=== PATIENT | male | born 1950 | race Caucasian/White ===

== ENCOUNTER → 2016-06-07 | Outpatient (REF) | payer OTHER | END | disposition home or self-care (01) | LOC: M SMT 17:00 | PROVIDERS: ATTEND Urology | DX: R31.0 Gross hematuria (principal) ==

== ENCOUNTER → 2016-07-27 | Day surgery (SDC) | payer OTHER, MEDICARE ==
[~2016-07-27] MED LIST: APIDINJ2 SC; ASPI325T28 PO; ATOR40TA PO; CIPR500T3 PO; CONRAY-60 60% 50ML VIAL (Q9961) As Ordered ONE; DRIS50002 PO; DULO30CA PO; FLOM5CAP PO; INSULADS INJ; KETOROLAC 60 MG/2 ML VIAL (J1885) As Ordered ONE; LANO1TAB23 PO; LEVA250T PO; LIDOCAINE 2% INJ 100 MG/5 ML SDV (FOR ANES.) As Ordered ONE; LOVE0.4I2 SC; LYRI200C PO; MELO7.5T6 PO; METO50TA2 PO; MIDAZOLAM INJ 2 MG/2 ML VIAL (J2250) As Ordered ONE; NALOXONE INJ 0.4 MG/1 ML VIAL (J2310) ONE; ONDANSETRON 4MG/2ML VIAL (J2405) As Ordered ONE; ONDANSETRON 4MG/2ML VIAL (J2405) IV PRN; PANT40TA2 PO; PERC10TA17 PO; PERCOCET PO; PROPOFOL 200 MG/20 ML VIAL As Ordered ONE; PROS5TAB PO; SULF1TAB72 PO; XARE20TA PO; ceFAZolin SOD 1 GM in D5W MINI-BAG PLUS 50 ML IV ONE; ePHEDrine SULFATE 25 MG/5 ML(5MG/ML) SYRINGE As Ordered ONE; ePHEDrine SULFATE 25 MG/5 ML(5MG/ML) SYRINGE IV SCH; fentaNYL 100 MCG/2 ML INJECTION (J3010) As Ordered ONE
[2016-07-27] MEDS: LR 1,000 ML IV SCH (12:30)
[2016-07-27] MEDS: NALOXONE INJ 0.4 MG/1 ML VIAL (J2310) IV SCH ×2 (14:45→14:50)
--- NOTE | 2016-07-27 16:07 | REP ---
Retrograde pyelogram: Five views: History: Left-sided hydronephrosis. 1 minute 28 seconds of fluoroscopy time is reported. Findings: A sequence of five fluoroscopically obtained intraprocedural spot radiographs of the abdomen document cystoscopy instrument, left ureteral cannulation, contrast injection, guidewire manipulation, and double pigtail left ureteral stent placement. No laterality markers are visible. Signed by Temo Tarango MD 07/27/2016 05:45 P
[2016-07-27 17:04] VITALS: BP 118/61
--- NOTE | 2016-07-28 13:40 | RO ---
DATE OF PROCEDURE: 07/27/2016 PREOPERATIVE DIAGNOSIS: Left ureteral stone 1 cm in diameter. POSTOPERATIVE DIAGNOSIS: Left ureteral stone 1 cm in diameter. SURGERY PERFORMED: Cystoscopy, plus left retrograde pyelogram, plus left laser stone lithotripsy, plus left basket extraction of stone, plus left JJ-stent placement #6 Austrian [place] Cook. SURGEON: Dr. Magdaleno Solano BOARD OF EDUCATION SECRETARY: Michael Anderson, PGY3 ANESTHESIA: General. COMPLICATIONS: None. ESTIMATED BLOOD LOSS: N/A. HISTORY OF PRESENT ILLNESS: 66-year-old male patient that actively has a 1 cm left mid ureteral stone and left hydronephrosis and left flank pain. For this reason, he has consented for cystoscopy, plus possible left retrograde pyelogrma, plus possible left laser stone lithotripsy with Holmium laser, plus possible basket extraction of stone, possible left JJ-stent placement #6 Austrian [place] Cook. PROCEDURE DESCRIPTION: In a patient under general anesthesia in supine modified low lithotomy position after prepping and draping the area of concern, which included the entire genitalia and abdomen, we started by introducing a cystoscope, #21 Austrian in diameter with 30 degrees lens under video guidance. The fossa navicularis, penile urethra, bulbar urethra, membranous urethra and prostatic urethra were totally normal. The bladder had no tumors, no stones, no foreign objects. Both ureteral orifices were seen excreting clear urine. We then proceeded to pass a 5 Austrian Pollack catheter into the left ureteral orifice and did a retrograde pyelogram. We could actively evidence a stone in the mid ureter. There was no kidney stones. At that moment in time, we passed a Sensor guidewire through the Pollack catheter up to the kidney and removed the Pollack catheter out. We removed the cystoscope out. We passed a double lumen catheter and passed a guidewire up to the kidney. We then removed the double lumen catheter and passed a ureteral access sheath up to the mid ureter. We took out the ureteral obturator of the access sheath and the internal guidewire out and could actively save the safety guidewire parallel to the ureteral access sheath. Through the ureteral access sheath we introduced a flexible ureteroscope. We did a formal ureteroscopy up to where we met a stone in the mid ureter. At that moment in time we did a Holmium laser lithotripsy of the stone with the Holmium laser 200 micron probe laser at power 0.6 at a rate of 6. Once the stone was pulverized into multiple fragments, we grabbed the 1.9 Austrian 0 tip basket and grabbed the stones one by one out of the body of the patient. We then proceeded to actively advance the ureteroscope out to the kidney and did a formal nephroscopy of upper pole, mid pole and lower pole. There were no stones left. We then proceeded to do a retrograde ureteroscopy by removing the ureteroscope and the ureteral access sheath at the same time. There were no stones left in the ureter. We then proceeded to actively introduce a cystoscope once again following the guidewire and introduced a left JJ-stent following the safety guidewire up to the kidney. Once it was in good position, we took the safety guidewire out and the curl in the kidney and the curl in the bladder was seen and x-ray was taken. We then emptied the bladder and took the cystoscope out. PLAN: The patient will go home today with antibiotics and pain medication. Followup in one week for removal of the left JJ-stent. There were no complications during the surgery. The stones were sent for biochemical analysis.
== END ==
LOC: M SDC 11:42
PROVIDERS: ATTEND Urology
DX: N20.1 Calculus of ureter (principal); I10 Essential (primary) hypertension; J44.9 Chronic obstructive pulmonary disease, unspecified; I25.10 Atherosclerotic heart disease of native coronary artery without angina pectoris; I25.2 Old myocardial infarction; I44.0 Atrioventricular block, first degree; E11.21 Type 2 diabetes mellitus with diabetic nephropathy; K44.9 Diaphragmatic hernia without obstruction or gangrene; M54.2 Cervicalgia; M10.9 Gout, unspecified; E78.5 Hyperlipidemia, unspecified; F41.9 Anxiety disorder, unspecified; F32.9 Major depressive disorder, single episode, unspecified; N40.1 Benign prostatic hyperplasia with lower urinary tract symptoms; R32 Unspecified urinary incontinence; G89.29 Other chronic pain; R06.83 Snoring; Z86.73 Personal history of transient ischemic attack (TIA), and cerebral infarction without residual deficits; Z87.442 Personal history of urinary calculi; Z79.899 Other long term (current) drug therapy; Z79.4 Long term (current) use of insulin; Z79.82 Long term (current) use of aspirin; Z79.01 Long term (current) use of anticoagulants; Z87.891 Personal history of nicotine dependence
CPT/HCPCS: 36415; 52352; 52356; 74420; 82360; 84132; 88300; C2617; J0690; J1885; J2250; J2310; J2405; J3010; Q9961

== ENCOUNTER 2016-08-04 13:52 | Inpatient (IN) | payer MEDICARE, OTHER ==
[~2016-08-04] VITALS: Ht 188 cm; Wt 122.4 kg
[~2016-08-04 13:52] MED LIST changes: -CONRAY-60 60% 50ML VIAL (Q9961) As Ordered ONE; -KETOROLAC 60 MG/2 ML VIAL (J1885) As Ordered ONE; -LIDOCAINE 2% INJ 100 MG/5 ML SDV (FOR ANES.) As Ordered ONE; -MIDAZOLAM INJ 2 MG/2 ML VIAL (J2250) As Ordered ONE; -NALOXONE INJ 0.4 MG/1 ML VIAL (J2310) ONE; -ONDANSETRON 4MG/2ML VIAL (J2405) As Ordered ONE; -ONDANSETRON 4MG/2ML VIAL (J2405) IV PRN; -PROPOFOL 200 MG/20 ML VIAL As Ordered ONE; -ceFAZolin SOD 1 GM in D5W MINI-BAG PLUS 50 ML IV ONE; -ePHEDrine SULFATE 25 MG/5 ML(5MG/ML) SYRINGE As Ordered ONE; -ePHEDrine SULFATE 25 MG/5 ML(5MG/ML) SYRINGE IV SCH; -fentaNYL 100 MCG/2 ML INJECTION (J3010) As Ordered ONE
[2016-08-04] MEDS ORDERED: NS 500 ML IV ONE (16:00)
[2016-08-04 16:25] LABS: MICROSCOPIC INDICATED? MAN YES (NO)
[2016-08-04 16:31] LABS: BACTERIA, URINE SMALL AMOUNT; HYALINE CAST, URINE NONE SEEN /lpf (0-1); RBC, URINE TNTC /hpf (0-3); SQUAMOUS EPITHELIAL CELL URINE SMALL AMOUNT /hpf (SMALL AMT); WBC, URINE 0-1 /hpf (0-3)
[2016-08-04 16:32] LABS: MICROSCOPIC EXAM PERFORMED
--- NOTE | 2016-08-04 17:11 | REP ---
BILATERAL RENAL ULTRASOUND: 08/04/2016. COMPARISON: Retrograde pyelogram 07/27/2016, CT abdomen and pelvis 05/02/2016. CLINICAL HISTORY: Left flank pain, status post ureteral stent placement 07/27/2016. FINDINGS: Sonographic evaluation of the kidneys is this patient show the right kidney 15 x 6 x 6 cm. Its cortical thickness and echogenicity appear normal. There are multiple cysts with a 2 x 2.3 x 2 cm cyst peripherally in the upper pole, a 2.6 x 2.5 cm cyst laterally in the interpolar region and 1 x 1 mm cyst below it at the interpolar lower pole junction. There is mild hydronephrosis, but no hydroureter. No renal stone or solid mass identified. The left kidney is 13 x 5.4 x 7 cm. It has normal cortical thickness and echogenicity. In the upper pole, there is a 3 x 2.7 x 2.5 cm cyst. Peripherally in the interpolar region is a 1.6 x 1.3 x 1.2 cm cyst and in the lower pole is the dominant cyst 5.2 x 2.8 x 3.3 cm. There is mild hydronephrosis, but no hydroureter on this side. Pelviectasis and caliectasis on both sides. Parapelvic and cortical cysts seen. There is a internal ureteral stent evident. Its distal coil is in the left side of the bladder. Bladder is distended. There is echogenic debris evident. No ureteral jets were seen on either side. Prostate appears somewhat enlarged measuring 4.6 x 4.2 x 4.1 cm. Impression: 1. There is a left double pigtail ureteral stent coiled proximally in the renal collecting system and distally in the bladder. No definite solid mass or stone identified at this time by ultrasound. 2. Bilateral renal cysts were noted. There is mild hydronephrosis bilaterally without hydroureter on the right or left side. 3. Pigtail stent in the bladder on the left side. Ureteral jets are not seen. Bladder adequately distended and there is echogenic debris layering posteriorly. Prostate enlarged indenting the bladder base. Signed by Jonah Bahena MD 08/05/2016 10:45 A
[2016-08-04 17:33] LABS: BASO % 0.5 % (0.0-1.0); EOS # 0.2 K/mm3 (0.0-0.50); EOS % 2.6 % (0.0-3.0); LARGE UNSTAINED CELL # 0.1 K/mm3 (0.0-0.4); LARGE UNSTAINED CELL % 1.9 % (0.0-4.0); LYMPH # 1.6 K/mm3 (1.5-4.5); LYMPH % 28.4 % (24.0-44.0); MEAN CORPUSCULAR HEMOGLOBIN 28.5 pg (27.0-33.0); MEAN CORPUSCULAR HGB CONC 31.9 g/dl (32.0-36.5); MEAN CORPUSCULAR VOLUME 89.4 fl (80.0-96.0); MONO # 0.3 K/mm3 (0.0-0.8); MONO % 5.5 % (0.0-5.0); NEUTROPHILS # 3.5 K/mm3 (1.8-7.7); PLATELET COUNT, AUTOMATED 142 k/mm3 (150-450); RED CELL DISTRIBUTION WIDTH 13.7 % (11.5-14.5); WHITE BLOOD COUNT 5.7 K/mm3 (4.0-10.0)
[2016-08-04 17:48] LABS: INR 1.78
[2016-08-04] MEDS: CIPROFLOXACIN 500 MG TAB PO SCH (18:00)
--- NOTE | 2016-08-04 18:36 | REP ---
ABDOMEN KUB: REASON: Assess stent. On the left there is a double-J stent catheter in the proximal portion of which appears to be in the region of the left renal pelvis in the distal portion of which appears to be in the region of the urinary bladder. Examination is otherwise unremarkable. Chronic calcifications are seen in the pelvis and there is no evidence of intestinal obstruction of free air. Chronic changes are seen involving the imaged osseous structures. Signed by Richard Martinez DO 08/04/2016 07:17 P
[2016-08-04 19:12] LABS: ANION GAP 7 MEQ/L (8-16); BLOOD UREA NITROGEN 27 MG/DL (7-18); CALCIUM LEVEL 9.6 MG/DL (8.8-10.2); CARBON DIOXIDE LEVEL 29 MEQ/L (21-32); CHLORIDE LEVEL 106 MEQ/L (98-107); CREATININE FOR GFR 1.59 MG/DL (0.70-1.30); GLOMERULAR FILTRATION RATE 46.3 (>49); GLUCOSE, FASTING 265 MG/DL (80-110); SODIUM LEVEL 142 MEQ/L (136-145)
[2016-08-04 19:13] LABS: POTASSIUM SERUM 5.6 MEQ/L (3.5-5.1)
[2016-08-04] MEDS ORDERED: HumaLOG INSULIN (NovoLOG) PER UNIT SC SCH (21:00)
[2016-08-04] MEDS ORDERED: LEVEMIR (INSULIN DETEMIR) 1 UNITS/0.01ML SC SCH (21:00)
[2016-08-04] MEDS ORDERED: ATORVASTATIN 20 MG TAB PO SCH (21:00)
[2016-08-04] MEDS ORDERED: DIGOXIN 0.25 MG TAB PO SCH (21:00)
[2016-08-04] MEDS ORDERED: NS 1,000 ML IV SCH (21:03)
[2016-08-04] MEDS ORDERED: DEXTROSE 50% 50 ML SYRINGE IV PRN (21:15)
[2016-08-04] MEDS ORDERED: GLUCOSE 4 GM CHEW TABLET PO PRN (21:15)
[2016-08-04] MEDS ORDERED: ACETAMINOPHEN TAB 650MG DOSE (2X325MG) PO PRN (21:15)
[2016-08-04] MEDS ORDERED: GLUCAGON FOR INJ 1 MG VIAL (J1610) SC PRN (21:15)
[2016-08-04] MEDS ORDERED: CIPR500T3 PO (21:20)
[2016-08-04] MEDS ORDERED: DIGO0.25 PO (21:20)
[2016-08-04] MEDS ORDERED: XARE20TA PO (21:25)
[2016-08-04] MEDS ORDERED: CYCL10TA PO (21:25)
[2016-08-04] MEDS ORDERED: ASPI325T PO (21:25)
[2016-08-04] MEDS ORDERED: HYDR-3719 PO (21:25)
[2016-08-04] MEDS ORDERED: DULO1CAP PO (21:25)
[2016-08-04 21:37] LABS: FERRITIN 14 NG/ML (26-388); PERCENT SATURATION 11.3 % (19.7-37.4); TOTAL IRON BINDING CAPACITY 424 UG/DL (250-450)
[2016-08-04 21:47] LABS: RETICULOCYTE ABSOLUTE ADVIA212 162 x10(9)/L (17-77)
--- NOTE | 2016-08-04 22:14 | HPEPDOC ---
General Date of Admission Aug 04, 2016 at 21:18 Chief Complaint The patient is a 66-year-old male Presented to the hospital for blood in his urine. History of Present Illness Patient is a 66 year old male with a PMHx of A. fib (on Xarelto), IDDM2, Vitamin D deficiency, DLP, BPH, CHF, Fibromyalgia, Neuropathy, CVA (2011) , PTSD, and Recent Hx of nephrolithiasis who presented to the ED with complaints of blood in his urine. Patient notes that on 07/27 patient had a lithotripsy and left basket extraction plus left JJ stent placement with Dr. Solano for a kidney stone. Patient was advised to stop taking Xarelto and continue with Lovenox alone, however did has been taking Xarelto. Patient presented to the ER today with complaints of dizziness and blood in his urine since the procedure on 07/27. Today patient has noted a large clot that he passed in his urine. He denies any LOC or fall. Denies shortness of breath or palpitations. He does note some mild chest pain, at his upper chest, 4/10, pain, no radiation , no alleviating or aggravating factors. No associated SOB, nausea, vomiting or diaphoresis. He denies any abdominal pain, constipation, diarrhea or urinary discomfort. He does note urinary frequency. Home Medications Scheduled (Apidra Solostar) 100 Unit/Ml Inj 1 DOSE SC AC (Reported) Aspirin (Aspirin) 325 Mg Tab 325 MG PO DAILY (Reported) Atorvastatin Calcium (Atorvastatin Calcium) 40 Mg Tab 40 MG PO QHS (Reported) Ciprofloxacin HCl (Ciprofloxacin HCl) 500 Mg Tab 500 MG PO BID (Reported) Digoxin (Digoxin) 0.25 Mg Tab 0.25 MG PO QHS (Reported) Duloxetine Hcl (Duloxetine HCl) 20 Mg Cap 40 MG PO DAILY (Reported) Finasteride (Proscar) 5 Mg Tab 5 MG PO DAILY (Reported) Insulin Glargine (Lantus) 100 Unit/Ml Inj 40 UNIT INJ BID (Reported) Meloxicam (Meloxicam) 7.5 Mg Tab 7.5 MG PO DAILY (Reported) Metoprolol Tartrate (Metoprolol Tartrate) 50 Mg Tab 50 MG PO BID (Reported) Pantoprazole Sodium (Pantoprazole Sodium) 40 Mg Tab 40 MG PO DAILY (Reported) Pregabalin (Lyrica) 200 Mg Cap 200 MG PO BID (Reported) Rivaroxaban (Xarelto) 20 Mg Tab 20 MG PO DAILY (Reported) Tamsulosin Hydrochloride (Flomax) 0.4 Mg Cap 1 CAP PO DAILY (Reported) once daily 1/2 hour following the same meal each day Vitamin D (Drisdol) 50,000 Unit Cap 50,000 UNIT PO QWEEK (Reported) MONDAY MORNING Scheduled PRN Acetaminophen/Hydrocodone (Hydrocodone/Acetaminophen 10-325 mg) 1 Tab Tab 1 TAB PO Q4H PRN PRN PAIN (Reported) Cyclobenzaprine HCl (Cyclobenzaprine HCl) 10 Mg Tab 10 MG PO TID PRN PRN MUSCLE SPASMS (Reported) Allergies Coded Allergies: No Known Drug Allergy (Verified Allergy, Unknown, 07/01/16) Past Medical History Medical History A. fib (on Xarelto), IDDM2, Vitamin D deficiency, DLP, BPH, CHF, Fibromyalgia, Neuropathy, CVA (2011), PTSD, and Recent Hx of nephrolithiasis Surgical History 3 kidney stones removed Disk repair at neck Blood clot in R arm resection Cataract surgery bilaterally Carpal tunnel repair bilaterally Family History - Non-contributory Social History - Denies the use of alcohol or illicit drugs; Quit smoking 30 years ago ; smoker of 20 years at 2 [facility] - Denies recent travel or sick contacts - Lives with - Occupation; Retired [employer] Review of Symptoms Other systems Constitutional: Denies weight loss, change in appetite, or recent trauma Eyes: No visual changes or eye pain Ears, Nose, Throat: Denies nose bleeds, or difficulty swallowing Cardiovascular: Positive chest pain, No sweating, or orthopnea Respiratory: Denies cough, wheezing, or shortness of breath GI: Lionel nausea, vomiting, abdominal pain, diarrhea or constipation : Denies pain with urination, Positive frequency and blood Musculoskeletal: Denies joint pain or swelling Neuro / Psych: Denies muscle weakness or sensory loss Skin: No skin rashes noted All other review of systems negative; otherwise stated in history of present illness Screening: - Colonoscopy done a few years ago reported normal Vital Signs - Vitals: BP 161/79, HR 78, RR 18, Sat 95%RA, Temp 97.2F - General: Lying in bed, No acute distress, Speaking in full sentences, AAOx3 - HEENT: NC, AT, PERRLA, EOMI - CVS: RRR, +S1S2, + Systolic murmur - Lungs: Fair air entry bilaterally, Clear to auscultation, No wheezing / rales / rhonchi - Abdomen: Soft, Non-distended, Non-tender, + Bowel sounds x 4, Bruise around R LQ 2/2 Lovenox injection, + L CVA tenderness - Extremities: + PPx4, No lower extremity edema, No calf tenderness - Neuro: No focal motor or sensory deficit - Skin: No visible rashes Laboratory Data Labs 24H Laboratory Tests 2 08/04/16 16:03: Bedside Urine Appearance (LAB) TURBIDH, Bedside Urine Bilirubin (LAB) NEGATIVE, Bedside Urine Blood POSITIVEH, Bedside Urine Color (LAB) REDH, Bedside Urine Glucose (UA) 4+(1000 MG/DL)H, Bedside Urine Ketones (LAB) NEGATIVE, Bedside Urine Leukocyte Esterase (L NEGATIVE, Bedside Urine Nitrite (LAB) NEGATIVE, Bedside Urine Protein (LAB) 3+H, Bedside Urine Specific Raymond (LAB 1.020, Bedside Urine Urobilinogen (LAB) NORMAL, Bedside Urine pH (LAB) 6.0, Urine WBC 0 -1, Urine RBC TNTCH, Urine Squamous Epithelial Cells SMALL AMOUNT, Urine Bacteria SMALL AMOUNTH, Urine Hyaline Casts NONE SEEN, Urine Trichomonas , Urine Sediment Examination PERFORMED 08/04/16 17:11: Activated Partial Thromboplast Time 39.4H, Prothromb Time International Ratio 1.78, Prothrombin Time 20.8H 08/04/16 17:12: Absolute Reticulocyte Count 162H, White Blood Count 5.7, Red Blood Count 4.66, Hemoglobin 13.3L, Hematocrit 41.6L, Mean Corpuscular Volume 89.4, Mean Corpuscular Hemoglobin 28.5, Mean Corpuscular Hemoglobin Concent 31.9L, Red Cell Distribution Width 13.7, Platelet Count 142L, Neutrophils (%) (Auto) 61.0, Lymphocytes (%) (Auto) 28.4, Monocytes (%) (Auto) 5.5H, Eosinophils (%) (Auto) 2.6, Basophils (%) (Auto) 0.5, Neutrophils # (Auto) 3.5, Lymphocytes # (Auto) 1.6, Monocytes # (Auto) 0.3, Eosinophils # (Auto) 0.2, Basophils # (Auto) 0.0, Large Unclassified Cells # 0.1, Large Unclassified Cells % 1.9, Percent Reticulocyte Count 3.50H, Reticulocyte Hgb Content (CHr) 31.0 08/04/16 18:52: Anion Gap 7L, Blood Urea Nitrogen 27H, Creatinine 1.59H, Sodium Level 142, Potassium Level 5.6H, Chloride Level 106, Carbon Dioxide Level 29, Calcium Level 9.6, Total Creatine Kinase 204, Creatine Kinase MB 4.2H, Creatine Kinase MB Relative Index 2.05, Ferritin 14L, Glomerular Filtration Rate 46.3L, Iron Level 48L, Total Iron Binding Capacity 424, Transferrin % Saturation 11.3L, Troponin I < 0.02 08/04/16 21:32: Bedside Glucose (Misc Panel) 286H CBC/BMP Laboratory Tests 08/04/16 17:12 Red Blood Count 4.66, Mean Corpuscular Volume 89.4, Mean Corpuscular Hemoglobin 28.5, Mean Corpuscular Hemoglobin Concent 31.9 L, Red Cell Distribution Width 13.7, Neutrophils (%) (Auto) 61.0, Lymphocytes (%) (Auto) 28.4, Monocytes (%) ( Auto) 5.5 H, Eosinophils (%) (Auto) 2.6, Basophils (%) (Auto) 0.5, Neutrophils # (Auto) 3.5, Lymphocytes # (Auto) 1.6, Monocytes # (Auto) 0.3, Eosinophils # ( Auto) 0.2, Basophils # (Auto) 0.0 08/04/16 18:52 Calcium Level 9.6, Total Creatine Kinase 204 Microbiology Microbiology 08/04/16 Urine Culture, Received Pending Plan / VTE VTE Prophylaxis Ordered?: Yes Plan / Urinary Catheter Reason for insertion/continuin: Other-document below Plan Plan Hematuria likely 2/2 post-procedure, nephrolithiasis, possible mass - Patient has had a lithotripsy, basket stone removal and stent placement on 07/27 - Presented with hematuria since that point, worsening to clots at this time and dizziness - Physical reveals left flank pain - Hg 13.3, no recent baseline available for comparison - Hemodynamically stable - Will trend H&H q6h - Type and screen and consented for transfusion - Will hold Xarelto and Lovenox for now - Will continue with Ciprofloxacin (post urologic antibiotic prescribed by Urology) - Discussed case with Dr. Solano (on consult); will hold off on bladder irrigation and packer insertion at this point as patient is still able to pass urine, and to hold anticoagulation for now Chest pain possibly 2/2 cardiac etiology, possibly 2/2 GERD - reports chest pain started today, is atypical in nature - Will get stat EKG and trend troponin - Will keep on PCU for monitoring Thrombocytopenia possibly 2/2 consumptive etiology 2/2 hematuria - will monitor for now CKD3 - Cr appears to be at baseline - Will monitor for now A. fib (on Xarelto) - c/w digoxin and metoprolol - will hold anticoagulation for now IDDM2 - c/w insulin sliding scale and long acting insulin Vitamin D deficiency - c/w vitamin D supplementation DLP - c/w statin BPH - c/w tamsulosin CHF - Systolic murmur - no ECHO available Fibromyalgia and Neuropathy - c/w Lyrica CVA (2011) - will hold ASA - c/w statin PTSD - c/w duloxetine GERD - c/w protonix DVT prophylaxis - Will start SCDs RODRIGO FREDERICK MD Aug 04, 2016 22:14
[2016-08-04] MEDS ORDERED: SOD POLYSTYRENE SULFONATE SUSP 15 GM/60 ML UD PO ONE (23:30)
[2016-08-05] VITALS: BP 173/77; PULSE 72
[2016-08-05] MEDS: PREGABALIN 100 MG CAP (LYRICA) PO SCH ×2 (01:31→09:11)
[2016-08-05] MEDS: METOPROLOL TART 50 MG TAB PO SCH ×2 (01:32→09:11)
[2016-08-05 04:00] VITALS: BP 174/81; PULSE 73
[2016-08-05] MEDS: CIPROFLOXACIN 500 MG TAB PO SCH (06:35)
[2016-08-05 07:10] LABS: BASO % 0.7 % (0.0-1.0); EOS # 0.3 K/mm3 (0.0-0.50); EOS % 4.6 % (0.0-3.0); LARGE UNSTAINED CELL # 0.1 K/mm3 (0.0-0.4); LARGE UNSTAINED CELL % 1.8 % (0.0-4.0); LYMPH # 1.8 K/mm3 (1.5-4.5); LYMPH % 29.9 % (24.0-44.0); MEAN CORPUSCULAR HEMOGLOBIN 29.6 pg (27.0-33.0); MEAN CORPUSCULAR HGB CONC 32.5 g/dl (32.0-36.5); MEAN CORPUSCULAR VOLUME 91.1 fl (80.0-96.0); MONO # 0.3 K/mm3 (0.0-0.8); MONO % 5.5 % (0.0-5.0); NEUTROPHILS # 3.2 K/mm3 (1.8-7.7); NEUTROPHILS % 57.5 % (36.0-66.0); PLATELET COUNT, AUTOMATED 145 k/mm3 (150-450); RED CELL DISTRIBUTION WIDTH 13.8 % (11.5-14.5); WHITE BLOOD COUNT 5.5 K/mm3 (4.0-10.0)
[2016-08-05 07:33] LABS: ALBUMIN 3.3 GM/DL (3.2-5.2); ALBUMIN/GLOBULIN RATIO 0.85 (1.00-1.93); ALKALINE PHOSPHATASE 67 U/L (45-117); ALT/SGPT 34 U/L (12-78); ANION GAP 5 MEQ/L (8-16); AST/SGOT 22 U/L (15-37); BILIRUBIN,TOTAL 0.3 MG/DL (0.2-1.0); BLOOD UREA NITROGEN 23 MG/DL (7-18); CARBON DIOXIDE LEVEL 31 MEQ/L (21-32); CHLORIDE LEVEL 103 MEQ/L (98-107); CREATININE FOR GFR 1.46 MG/DL (0.70-1.30); GLOMERULAR FILTRATION RATE 51.1 (>49); GLUCOSE, FASTING 287 MG/DL (80-110); MAGNESIUM LEVEL 1.8 MG/DL (1.8-2.4); POTASSIUM SERUM 5.1 MEQ/L (3.5-5.1); SODIUM LEVEL 139 MEQ/L (136-145); TOTAL PROTEIN 7.2 GM/DL (6.4-8.2)
--- NOTE | 2016-08-05 07:59 | REP ---
Clinical: Bladder mass. Comparison: 05/12/2016 Findings: A left ureteral stent is identified extending into the bladder. The prostate gland is moderately enlarged and demonstrates mass effect on the base of the bladder measuring up to approximately 4.7 cm maximal diameter. Visualized portion of the right ureter appears normal. The bladder is otherwise unremarkable. 3.7 cm fat containing periumbilical hernia is essentially unchanged. Visualized portions of the small and large bowel demonstrate colonic diverticulosis and normal terminal ileum/appendix. No ascites. No obvious adenopathy. No obvious mass lesion. Atherosclerotic changes to the vasculature noted. Surrounding musculoskeletal structures the straight age-related degenerative changes. Impression: 1. Moderately enlarged prostate gland with mass effect on the base of the bladder. 2. Left ureteral stent extends into the bladder. No evidence for hydroureter. 3. Colonic diverticulosis. 4. 3.7 cm fat containing periumbilical hernia. Signed by Sven Almaraz MD 08/05/2016 07:51 A
[2016-08-05 08:00] VITALS: BP 150/76
[2016-08-05] MEDS ORDERED: PANTOPRAZOLE 40MG TAB (PROTONIX) PO SCH (09:00)
[2016-08-05] MEDS ORDERED: TAMSULOSIN 0.4 MG CAP PO SCH (09:00)
[2016-08-05] MEDS ORDERED: DULoxetine 20 MG CAP (CYMBALTA) PO SCH (09:00)
[2016-08-05] MEDS ORDERED: FINASTERIDE 5 MG TAB PO SCH (09:00)
[2016-08-05] MEDS: HumaLOG INSULIN (NovoLOG) PER UNIT SC SCH ×2 (09:10→12:46)
[2016-08-05 09:11] VITALS: BP 155/75
[2016-08-05 12:00] VITALS: BP 123/62
[2016-08-05] MEDS ORDERED: ANEXSIA, NORCO 7.5MG/325MG TABLET(HYDROCODONE/APAP) PO PRN (12:30)
--- NOTE | 2016-08-05 13:04 | REPUSA ---
CLINICAL HISTORY: R/O KIDNEY MASS TECHNIQUE: Multiple axial, sagittal and coronal CT images were obtained through the abdomen without a dministration of oral or IV contrast material. COMMENTS: The liver is of uniform attenuation without mass or defect. There is no intra or extrahepatic biliary ductal dilatation. The spleen is normal. The gallbladder is within normal limits. The pancreas is of normal contour and attenuation characteristics. There is no evidence of adrenal mass. The kidneys are normal in size, shape and configuration. No renal or ureteral calculi are identified. There is no hydroureter or hydronephrosis. Multiple bilateral renal cysts are noted, largest is 4 cm located in the lower pole of left kidney. Stent is noted in the left kidney. There is no bowel wall thickening. No evidence for small or large bowel obstruction. There is no evid ence of abdominal ascites or lymphadenopathy. Images of the lung bases show no evidence of pleural or parenchymal mass. There are no pleural effusi ons. The bony structures are free of lytic or blastic lesions. Multilevel degenerative changes are seen in volving the thoracolumbar spine. Scattered calcifications are seen involving the aorta and major branches compatible with atherosclero sis. IMPRESSION: Multiple bilateral renal cysts No evidence of renal mass. Thank you for your kind referral of this patient.
--- NOTE | 2016-08-05 18:35 | ECGEPIP ---
Stationary ECG Study 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
--- NOTE | 2016-08-06 05:36 | IPN ---
DATE: 08/05/2016 Mr. Hooper is feeling well today. He is still passing dark urine. He is having some left-sided flank pain and some pain in his left testicle, but he says that has been consistent for some time now. PHYSICAL EXAMINATION: Temperature is 96.5, pulse 66, respiratory rate 18, blood pressure 150/76, 95% on room air. Intake and output notable for a positive fluid balance of 416. Weight is 122.4 kg with a body mass index of 34.6. He is awake, appropriately interactive, pleasantly conversant, actively eating a sandwich during the exam. Breathing is symmetrical, IE ratio is 1:3, somewhat diminished in the bases. There is left costovertebral angle (CVA) tenderness. There is no abdominal tenderness. No rebound. No guarding. Heart has a regular rate and rhythm. White cell count is 5.5, hemoglobin 12.4. BUN 23, creatinine 1.46. ASSESSMENT: This is a 66-year-old with post procedure hematuria, nephrolithiasis on anticoagulation. PLAN: 1. Hematuria. Hemoglobin and hematocrit is relatively stable. He is still passing dark urine and we will continue to trend the hemoglobin and hematocrit. We are holding Lovenox and Xarelto at this point. He does have a history of stroke. We did discuss risk of recurrent stroke while holding anticoagulation. The patient and family seem to understand that there is an increased risk of stroke, but at this point, he would appear to have some blood loss going on and it must be held. Dr. Solano will see the patient in consultation at some point today. 2. Patient had chest discomfort. Troponins have been negative. Chest pain has resolved. I believe this is atypical in nature. We will continue to send him to telemetry when a telemetry bed becomes available. 3. Patient has insulin-dependent diabetes. 4. Patient has vitamin D deficiency. 5. Patient has dyslipidemia. 6. Patient has benign prostatic hypertrophy and is on Flomax. He will see urology today. 7. Patient has congestive heart failure by history. 8. Deep vein thrombosis (DVT) prophylaxis is mechanical.
--- NOTE | 2016-08-06 08:47 | CR ---
DATE OF CONSULTATION: 08/04/2016 REASON FOR CONSULTATION: Hematuria. HISTORY OF PRESENT ILLNESS: This is a 66-year-old male patient that back one week ago had a cystoscopy plus right retrograde pyelogram plus right ureteroscopy plus right laser stone lithotripsy plus right JJ stent placement. The patient was discharged home. Of note, the patient takes anticoagulation medication with Lovenox. He restarted the Lovenox the day of surgery and aspirin also and five days after surgery he actively restarted the Xarelto. The patient refers that since surgery he is having hematuria and the hematuria has gotten worse. For this reason, he came to the emergency department (ED) on 08/04/2016. The patient is afebrile, normotensive, with mild testicular pain. He is on antibiotic after surgery. A CT scan of the abdomen and pelvis as well as an ultrasound and a KUB was performed. The KUB shows a normal left JJ stent in good position. The ultrasound shows no hydronephrosis and the JJ stent in good position in the middle lobe in the bladder and a large prostate. The CT scan shows no lesions in the kidney, no stranding and no stones left behind. PHYSICAL EXAMINATION: He is awake, oriented times three, well nourished, well hydrated. Abdomen soft, nontender, nondistended. Flank percussion negative. He has mild pain on the left testicle. No pain on the right testicle. IMPRESSION AND PLAN: Hematuria due to anticoagulation medication, status post cystoscopy plus right ureteroscopy, laser stone lithotripsy, JJ stent placement and basket extraction of stones. The patient should continue his antibiotic therapy that was given after the surgery. The patient has a followup on Monday with us. The patient is drinking fluids, eating very well and emptying his bladder very well. He has some hematuria, but he is emptying his bladder and he is not in urinary retention. The patient would like to go home and we agreed on this. He needs to stop the Lovenox, the Xarelto and the aspirin until the urine is clear. Once the urine is clear, will take the JJ stent out in the clinic. He has increased his fluid intake to 3 liters. Since he is not in urinary retention and feels comfortable, the patient would like to go home and we agreed upon this. He just needs to increase his water intake and followup with us next Monday. We have talked to the hospitalist service also.
[2016-08-07] MEDS ORDERED: PREVNAR 13 VACCINE SYRINGE (CPT CODE:90670) IM ONE (09:00)
--- NOTE | 2016-08-22 17:56 | DSES ---
DATE OF ADMISSION: 08/04/2016 DATE OF DISCHARGE: 08/05/2016 Specialists involved in his care include Dr. Magdaleno Solano. No procedures performed during his stay. No complications during his stay. DISCHARGE DIAGNOSES: 1. Hematuria. 2. Atypical chest pain. 3. Insulin-dependent diabetes. 4. Vitamin D deficiency. 5. Dyslipidemia. 6. Benign prostatic hypertrophy. 7. History of congestive heart failure. The following is a summary of his hospitalization: This is a 66-year-old who presented with hematuria, on Xarelto, status post lithotripsy and left basket extraction plus left JJ stent placement. Presented with dizziness and blood in his urine, passing clots. Was seen in consultation by Dr. Solano and was thought to be safe for discharge. Was instructed to stop taking anticoagulants and to followup with Dr. Solano on the following Monday. DISCHARGE INSTRUCTIONS: Include the following: Followup with Dr. Solano on 08/08/2016 as scheduled. - continue [place] as needed for pain - continue Apidra before meals - continue atorvastatin 40 mg by mouth daily at bedtime - ciprofloxacin 500 mg by mouth twice daily - Flexeril 10 mg by mouth three times a day as needed - digoxin 0.25 mg by mouth daily at bedtime - duloxetine 40 mg by mouth daily - finasteride 5 mg by mouth daily - Lantus 40 units twice daily - meloxicam 7.5 mg daily - metoprolol tartrate 50 mg by mouth twice daily - Protonix 40 mg daily - Lyrica 200 mg by mouth twice daily - Flomax 0.4 mg daily - vitamin D supplement Discontinue aspirin. Discontinue Xarelto.
== END 2016-08-05 14:30 | disposition home or self-care (01) | DRG 813 ==
LOC: M ED 15:36 → M ED INP 21:18
PROVIDERS: ADMIT Internal Medicine; ATTEND Internal Medicine
DX: D68.32 Hemorrhagic disorder due to extrinsic circulating anticoagulants (principal); R31.9 Hematuria, unspecified; I48.91 Unspecified atrial fibrillation; E11.40 Type 2 diabetes mellitus with diabetic neuropathy, unspecified; E55.9 Vitamin D deficiency, unspecified; E78.5 Hyperlipidemia, unspecified; N40.0 Benign prostatic hyperplasia without lower urinary tract symptoms; I50.9 Heart failure, unspecified; M79.7 Fibromyalgia; T45.515A Adverse effect of anticoagulants, initial encounter; K21.9 Gastro-esophageal reflux disease without esophagitis; N18.3 Chronic kidney disease, stage 3 (moderate); R07.89 Other chest pain; D69.6 Thrombocytopenia, unspecified; F43.10 Post-traumatic stress disorder, unspecified; Z87.442 Personal history of urinary calculi; Z79.01 Long term (current) use of anticoagulants; Z86.73 Personal history of transient ischemic attack (TIA), and cerebral infarction without residual deficits; Z79.82 Long term (current) use of aspirin; Z79.899 Other long term (current) drug therapy; Z87.891 Personal history of nicotine dependence; Z79.4 Long term (current) use of insulin; Z86.718 Personal history of other venous thrombosis and embolism; Z96.0 Presence of urogenital implants

== ENCOUNTER → 2016-09-23 | Outpatient (REF) | payer OTHER ==
[~2016-09-23] MED LIST changes: +ASPI325T PO; +CYCL10TA PO; +DIGO0.25 PO; +DULO1CAP PO; +HYDR-3719 PO
== END ==
LOC: M SMT 12:50
PROVIDERS: ATTEND Urology
DX: N39.0 Urinary tract infection, site not specified (principal); B49 Unspecified mycosis

== ENCOUNTER → 2016-11-28 | Outpatient (REF) | payer OTHER ==
[~2016-11-28] MED LIST changes: -ATOR40TA PO; +ATOR40TA75 PO; +LEVA1TAB PO; -LEVA250T PO; -MELO7.5T6 PO; +MELO7.5T7 PO; -METO50TA2 PO; +METO50TA7 PO; -PERC10TA17 PO; +PERC10TA26 PO
== END ==
LOC: M SMT 13:17
PROVIDERS: ATTEND Urology
DX: R10.9 Unspecified abdominal pain (principal); N20.0 Calculus of kidney

== ENCOUNTER → 2016-12-15 | Outpatient (CLI) | payer OTHER ==
--- NOTE | 2016-12-16 02:54 | REP ---
Clinical: Left flank pain. Comparison: 05/12/2016. Findings: Evaluation of the urinary tract system demonstrates bilateral renal hypodensities similar to prior examination and likely representing cysts as well as stable 2 mm nonobstructing left renal calculus. No perinephric stranding, hydroureteronephrosis, or obstructing ureteral calculi are identified. The bladder is grossly unremarkable. The prostate gland is within normal limits. Liver, spleen, pancreas, gallbladder, and bilateral adrenal glands are normal for noncontrast evaluation. The enteric system is without obstruction or acute inflammatory process. Sigmoid diverticula noted without acute diverticulitis. 4 cm fat containing periumbilical hernia identified. No pelvic fluid or ascites. No significant adenopathy. No free air. Moderate atherosclerotic changes of the aorta and vasculature noted without aneurysm. Musculoskeletal structures demonstrate age-related changes without focal osseous abnormality. Lung bases demonstrate few small scattered noncalcified nodules up to 3 mm each may warrant chest CT for further investigation. Impression: 1. Bilateral renal cysts similar to 2016 along with 2 mm nonobstructing left renal calculus which may represent layering milk of calcium within cyst. No associated perinephric stranding or hydroureteronephrosis and no obstructing ureteral calculi identified. 2. Sigmoid diverticula without acute diverticulitis. 3. Cannot exclude small scattered pulmonary nodules up to [address] for further investigation may be warranted. Signed by Sven Almaraz MD 12/16/2016 02:46 A
== END ==
LOC: M RAD 13:25
PROVIDERS: ATTEND Urology
DX: N20.0 Calculus of kidney (principal)

== ENCOUNTER → 2017-01-27 | Outpatient (REF) | payer OTHER | LOC: M SMT 12:35 | PROVIDERS: ATTEND Urology | DX: N40.1 Benign prostatic hyperplasia with lower urinary tract symptoms (principal) ==

== ENCOUNTER → 2017-06-09 | Outpatient (REF) | payer OTHER ==
[2017-06-09 14:39] LABS: BASO # 0.1 10^3/uL (0.0-0.2); BASO % 0.7 % (0.0-1.0); EOS # 0.2 10^3/uL (0.0-0.50); EOS % 2.5 % (0.0-3.0); HEMATOCRIT 41.9 % (42.0-52.0); HEMOGLOBIN 13.7 g/dl (14.0-18.0); IMMATURE GRANULOCYTE % 0.6 % (0-0); LYMPH # 1.9 10^3/uL (1.5-4.5); LYMPH % 27.4 % (24.0-44.0); MEAN CORPUSCULAR HEMOGLOBIN 28.8 pg (27.0-33.0); MEAN CORPUSCULAR HGB CONC 32.7 g/dl (32.0-36.5); MONO # 0.6 10^3/uL (0.0-0.8); MONO % 8.1 % (0.0-5.0); NEUTROPHILS # 4.1 10^3/uL (1.8-7.7); NEUTROPHILS % 60.7 % (36.0-66.0); PLATELET COUNT, AUTOMATED 173 10^3/uL (150-450); RED BLOOD COUNT 4.76 10^6/uL (4.30-6.10); RED CELL DISTRIBUTION WIDTH 13.6 % (11.5-14.5); WHITE BLOOD COUNT 6.8 10^3/uL (4.0-10.0)
[2017-06-09 15:16] LABS: ERYTHROCYTE SEDIMENTATION RATE 18 mm/hr (0-20)
[2017-06-09 15:45] LABS: ALBUMIN 3.5 GM/DL (3.2-5.2); ALBUMIN/GLOBULIN RATIO 0.97 (1.00-1.93); ALKALINE PHOSPHATASE 80 U/L (45-117); ALT/SGPT 21 U/L (12-78); ANION GAP 7 MEQ/L (8-16); AST/SGOT 17 U/L (7-37); BILIRUBIN,TOTAL 0.6 MG/DL (0.2-1.0); BLOOD UREA NITROGEN 24 MG/DL (7-18); CARBON DIOXIDE LEVEL 31 MEQ/L (21-32); CHLORIDE LEVEL 101 MEQ/L (98-107); CREATININE FOR GFR 1.33 MG/DL (0.70-1.30); GLOMERULAR FILTRATION RATE 56.9 (>49); GLUCOSE, FASTING 159 MG/DL (80-110); POTASSIUM SERUM 4.9 MEQ/L (3.5-5.1); RHEUMATOID FACTOR QUANT < 10.0 IU/ML (0-15.0); SODIUM LEVEL 139 MEQ/L (136-145); TOTAL PROTEIN 7.1 GM/DL (6.4-8.2)
[2017-06-09 15:59] LABS: VITAMIN B12 LEVEL 327 PG/ML
[2017-06-09 16:00] LABS: FOLATE 18.8 NG/ML
[2017-06-13 08:17] LABS: ANTINUCLEAR ANTIBODIES DIRECT Negative (Negative); COPPER PLASMA 101 ug/dL (72-166); LEAD BLOOD ADULT 2 ug/dL (0-19); MERCURY LEVEL None Detected ug/L (0.0-14.9)
[2017-06-13 14:14] LABS: CERULOPLASMIN 25.1 mg/dL (16.0-31.0); VITAMIN B1 LEVEL WHOLE BLOOD 148.8 nmol/L (66.5-200.0); VITAMIN E LEVEL 11.5 mg/L (5.3-17.5)
== END ==
LOC: M LABNEURO 11:32
DX: R41.3 Other amnesia (principal)

== ENCOUNTER → 2017-07-10 | Outpatient (REF) | payer OTHER ==
[2017-07-10 19:23] LABS: APPEARANCE, URINE TURBID (CLEAR); BACTERIA, URINE AUTO 3+ (NEGATIVE); BILIRUBIN, URINE AUTO NEGATIVE (NEGATIVE); BLOOD, URINE BLOOD 1+ (NEGATIVE); COLOR, URINE YELLOW (YELLOW); GLUCOSE, URINE (UA) AUTO 3+ mg/dL (NEGATIVE); KETONE, URINE AUTO NEGATIVE (NEGATIVE); LEUKOCYTE ESTERASE, URINE AUTO 3+ (NEGATIVE); NITRITE, URINE AUTO NEGATIVE (NEGATIVE); PROTEIN, URINE AUTO 2+ mg/dL (NEGATIVE); RBC, URINE AUTO 10 /HPF (0-3); SQUAMOUS EPITHELIAL CELL UR AU 0 /HPF (0-6); UROBILINOGEN, URINE AUTO 0.2 mg/dL (0.0-2.0); WBC, URINE AUTO TNTC /HPF (0-3)
== END ==
LOC: M SMT 17:17
DX: N39.0 Urinary tract infection, site not specified (principal)
CPT/HCPCS: 81001

== ENCOUNTER → 2017-08-14 | Outpatient (REF) | payer OTHER | LOC: M SMT 13:35 | DX: N39.0 Urinary tract infection, site not specified (principal) ==

== ENCOUNTER → 2017-08-15 | Outpatient (CLI) | payer OTHER | LOC: M RAD 10:55 | DX: N39.0 Urinary tract infection, site not specified (principal); N40.1 Benign prostatic hyperplasia with lower urinary tract symptoms; N28.1 Cyst of kidney, acquired; K57.30 Diverticulosis of large intestine without perforation or abscess without bleeding; K42.9 Umbilical hernia without obstruction or gangrene | CPT/HCPCS: 74176 ==

== ENCOUNTER 2017-08-17 08:24 | Day surgery (SDC) | payer OTHER ==
[2017-08-17] MEDS: LR 1,000 ML IV (09:27)
[2017-08-17] MEDS ORDERED: PROPOFOL 200 MG/20 ML VIAL As Ordered (09:58)
[2017-08-17] MEDS ORDERED: LIDOCAINE 2% INJ 100 MG/5 ML SDV (FOR ANES.) As Ordered (09:58)
[2017-08-17] MEDS ORDERED: fentaNYL 100 MCG/2 ML INJECTION (J3010) As Ordered (09:59)
[2017-08-17] MEDS ORDERED: MIDAZOLAM INJ 2 MG/2 ML VIAL (J2250) As Ordered (09:59)
[2017-08-17] MEDS ORDERED: HumaLOG INSULIN (NovoLOG) PER UNIT As Ordered (10:12)
[2017-08-17 10:18] LABS: BEDSIDE GLUCOSE 236 MG/DL (80-115)
[2017-08-17] MEDS: HumaLOG INSULIN (NovoLOG) PER UNIT SC (10:20)
[2017-08-17] MEDS: CEFAZOLIN SOD 1 GM in APPROPRIATE DILUENT 1 EA IV (11:05)
[2017-08-17] MEDS ORDERED: ONDANSETRON 4MG/2ML VIAL (J2405) As Ordered (11:25)
[2017-08-17] MEDS ORDERED: ONDANSETRON 4MG/2ML VIAL (J2405) IV (12:15)
[2017-08-17] MEDS ORDERED: LR 1,000 ML IV (12:15)
[2017-08-17] MEDS ORDERED: fentaNYL 100 MCG/2 ML INJECTION (J3010) IV (12:15)
[2017-08-17] MEDS ORDERED: HYDROmorphone HCL 1 MG/ML SYRINGE (J1170) IV (12:15)
[2017-08-17 12:27] LABS: BEDSIDE GLUCOSE 170 MG/DL (80-115)
[2017-08-17] MEDS: PERCOCET 5MG/325MG TAB PO (13:00)
[2017-08-17] MEDS ORDERED: ACETAMINOPHEN 650MG ER TAB (TYLENOL ARTHRITIS) PO (14:00)
[2017-08-17] MEDS ORDERED: CIPROFLOXACIN 500 MG TAB PO (18:00)
== END 2017-08-17 13:45 | disposition home or self-care (01) ==
LOC: M SDC 08:24
DX: N40.1 Benign prostatic hyperplasia with lower urinary tract symptoms (principal); R32 Unspecified urinary incontinence; R31.9 Hematuria, unspecified; I10 Essential (primary) hypertension; I25.10 Atherosclerotic heart disease of native coronary artery without angina pectoris; F32.9 Major depressive disorder, single episode, unspecified; G20 Parkinson's disease; I44.0 Atrioventricular block, first degree; I48.0 Paroxysmal atrial fibrillation; I48.92 Unspecified atrial flutter; R07.9 Chest pain, unspecified; I25.2 Old myocardial infarction; E78.5 Hyperlipidemia, unspecified; I35.0 Nonrheumatic aortic (valve) stenosis; R01.1 Cardiac murmur, unspecified; I73.9 Peripheral vascular disease, unspecified; E11.40 Type 2 diabetes mellitus with diabetic neuropathy, unspecified; M10.9 Gout, unspecified; E03.9 Hypothyroidism, unspecified; R13.10 Dysphagia, unspecified; K21.9 Gastro-esophageal reflux disease without esophagitis; D64.9 Anemia, unspecified; R23.3 Spontaneous ecchymoses; E55.9 Vitamin D deficiency, unspecified; R29.898 Other symptoms and signs involving the musculoskeletal system; M12.9 Arthropathy, unspecified; M54.9 Dorsalgia, unspecified; M79.7 Fibromyalgia; M21.372 Foot drop, left foot; F41.9 Anxiety disorder, unspecified; F03.90 Unspecified dementia, unspecified severity, without behavioral disturbance, psychotic disturbance, mood disturbance, and anxiety; R51 Headache; F43.10 Post-traumatic stress disorder, unspecified; J44.9 Chronic obstructive pulmonary disease, unspecified; E66.09 Other obesity due to excess calories; Z79.899 Other long term (current) drug therapy; Z79.82 Long term (current) use of aspirin; Z79.4 Long term (current) use of insulin; Z86.73 Personal history of transient ischemic attack (TIA), and cerebral infarction without residual deficits; Z86.718 Personal history of other venous thrombosis and embolism; Z87.891 Personal history of nicotine dependence; Z96.1 Presence of intraocular lens
CPT/HCPCS: C9740

== ENCOUNTER → 2017-09-21 | Outpatient (REF) | payer OTHER ==
[2017-09-21 13:33] LABS: APPEARANCE, URINE CLEAR (CLEAR); BACTERIA, URINE AUTO NEGATIVE (NEGATIVE); BILIRUBIN, URINE AUTO NEGATIVE (NEGATIVE); BLOOD, URINE BLOOD 1+ (NEGATIVE); COLOR, URINE YELLOW (YELLOW); GLUCOSE, URINE (UA) AUTO 3+ mg/dL (NEGATIVE); KETONE, URINE AUTO NEGATIVE (NEGATIVE); LEUKOCYTE ESTERASE, URINE AUTO NEGATIVE (NEGATIVE); MUCUS, URINE SMALL (NEGATIVE); NITRITE, URINE AUTO NEGATIVE (NEGATIVE); PROTEIN, URINE AUTO 2+ mg/dL (NEGATIVE); RBC, URINE AUTO 2 /HPF (0-3); SPECIFIC GRAVITY URINE AUTO 1.027 (1.002-1.035); SQUAMOUS EPITHELIAL CELL UR AU 1 /HPF (0-6); UROBILINOGEN, URINE AUTO 0.2 mg/dL (0.0-2.0); WBC, URINE AUTO 1 /HPF (0-3)
== END ==
LOC: M LAB REF 12:57
DX: R39.9 Unspecified symptoms and signs involving the genitourinary system (principal)

== ENCOUNTER → 2018-01-23 | Outpatient (CLI) | payer OTHER ==
[2018-01-23 12:35] LABS: ERYTHROCYTE SEDIMENTATION RATE 24 mm/hr (0-20)
[2018-01-24 14:18] LABS: ANTINUCLEAR ANTIBODIES DIRECT Negative (Negative)
== END ==
LOC: M LAB 11:42
DX: R51 Headache (principal)
CPT/HCPCS: 36415

== ENCOUNTER → 2019-02-13 | Outpatient (CLI) | payer OTHER ==
[~2019-02-13] MED LIST changes: +ASPI-1 PO; +ASPI-527 PO; -ASPI325T PO; -ASPI325T28 PO; +ASPI81TA26 PO; +CARB25TA9 PO; -DRIS50002 PO; +DRIS50003 PO; -DULO1CAP PO; +DULO1CAP4 PO; -DULO30CA PO; +DULO30CA9 PO; +FLOM0.4C39 PO; -FLOM5CAP PO; -LANO1TAB23 PO; +LANO62.5 PO; -LEVA1TAB PO; +LEVA250T13 PO; +LEVO50TA5 PO; +LISI-542 PO; +METO1TAB87 PO; -PANT40TA2 PO; +PANT40TA3 PO; +RANI300C PO; +TYLE650T35 PO; +UROCTAB3 PO; +XARE10TA PO
== END ==
LOC: M SMT 14:20
PROVIDERS: ATTEND Nurse Practitioner Women's Health
DX: Z12.5 Encounter for screening for malignant neoplasm of prostate (principal)
CPT/HCPCS: 36415; 51798; G0103; G0463